=== PATIENT | male | born 1975 | race Caucasian/White ===

== ENCOUNTER 2020-02-11 09:26 | Outpatient (CLI) | payer MEDICARE, SELFPAY ==
--- NOTE | 2020-02-11 09:31 | MR_ITS ---
WS: [id number] MRI THORACIC SPINE WITH CONTRAST TECHNIQUE: Sagittal T1, T2 and STIR imaging. Axial T2 imaging. Post gadolinium imaging was obtained. CLINICAL INFORMATION: SYRINX OF SPINAL CORD COMPARISON: None. FINDINGS: Mild thoracic curve. Mild thoracic kyphosis. No acute compression fractures. Again seen is the tiny s yrinx mid thoracic cord unchanged since . This measures 1.9 cm in craniocaudal dimension unch anged and measures 2.2 mm in AP dimension. Stable hemangioma T7 vertebral body. No abnormal gadolinium enhancement. Stable small disc protrusion s at T2-3, T6-T7, T7-T8, and T8-9. Mild disc bulging T10-11. Mild to moderate left T9-10 bony foramin al narrowing unchanged. Moderate facet arthropathy lower thoracic spine. MR/MR thoracic spine wo/w [id number] IMPRESSION: 1. 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 2. No other significant changes from previous. 3. Small disc protrusions C2-3, T6/7, T7-8, T8-T9 unchanged. 4. Mild disc bulging T10-11 unchanged. 5. Moderate facet arthropathy lower thoracic spine.
== END 2020-02-11 09:27 | disposition home or self-care (01) ==
LOC: RADWPI 09:29
PROVIDERS: Visit Provider Specialist
DX: G95.0 Syringomyelia and syringobulbia (principal); M47.814 Spondylosis without myelopathy or radiculopathy, thoracic region; M51.24 Other intervertebral disc displacement, thoracic region
CPT/HCPCS: 72157; A9579